=== PATIENT | female | born 1945 | race Caucasian/White ===

== ENCOUNTER 2017-11-07 14:06 | Inpatient (IN) | payer MEDICARE, OTHER ==
[~2017-11-07] VITALS: Ht 165.1 cm; Wt 65.7 kg
[2017-11-07 14:12] VITALS: BP 137/87
[2017-11-07] MEDS ORDERED: PAIN MEDICATION (14:22)
[2017-11-07] MEDS ORDERED: LISINOPRIL5 MG PO (14:22)
[2017-11-07 14:47] LABS: HEMATOCRIT 38.8 % (37.0-47.0); HEMOGLOBIN 13.2 gm/dL (12.0-15.0); MCH 31.7 pg (26.0-34.0); MCHC 33.9 g/dL (28.0-37.0); MCV 93.6 fL (80.0-100.0); MPV 8.4 fl. (7.2-11.1); NUCLEATED RBCS 0 /100WBC; PLATELET COUNT* 341 thou/uL (150-400); RBC 4.15 mil/uL (4.20-5.00); RDW-CV 14.2 % (10.5-14.5); WBC 7.7 thou/uL (4.0-11.0)
[2017-11-07 14:56] LABS: APTT 26.4 Seconds (25.0-31.3); CALCIUM 8.1 mg/dL (8.5-10.1); CREATININE 0.9 mg/dL (0.6-1.3); PROTIME 9.9 Seconds (9.20-11.50)
[2017-11-07 15:07] LABS: ALBUMIN 3.6 g/dL (3.4-5.0); TOTAL BILIRUBIN 1.4 mg/dL (<0.1-1.0); TOTAL PROTEIN 7.2 g/dL (6.4-8.2); TROPONIN-I LEVEL 0.26 ng/mL (<0.06)
[2017-11-07 15:36] LABS: ABSOLUTE LYMPHOCYTES 0.8 thou/uL (0.8-5.3); ABSOLUTE MONOCYTES 0.2 thou/uL (0.0-1.2); ABSOLUTE NEUTROPHILS 6.6 thou/uL (1.6-8.1); PLATELET ESTIMATE ADEQUATE
[2017-11-07 15:46] LABS: HCO3 16.2 mmol/L (22.0-26.0); PCO2 22.1 mmHg (35.0-45.0); PO2 95.2 mmHg (75.0-100.0); pH 7.483 (7.340-7.450)
[2017-11-07 18:14] VITALS: BP 122/86
[2017-11-07 18:45] VITALS: BP 127/81
--- NOTE | 2017-11-07 19:40 | NUR ---
PATIENT PRESENTED TO 231 PER CART FROM ER WITH A HX OF RECENT SOA. PATIENT IS ALERT AND ORIENTED X 4. SHE DENIES PAIN ON ARRIVAL. PATIENT C/O DIZZINESS AND SOA. PATIENT PLACED ON TELE MONITOR AND ORIENTED TO ROOM. INSTRUCTED ON FALL PRECAUTIONS, CALL LIGHT AND BED CONTROLS. TELE SHOWS ST. DR OBRIEN IN TO SEE PATIENT SHORTLY AFTER ARRIVAL. REPORT GIVEN TO CLERK GENERAL OFFICE. IV FLUIDS CONTINUED FROM ER.
[2017-11-07 20:00] VITALS: BP 139/83
[2017-11-08] VITALS (7 sets, daily range): BP systolic 118–174; BP diastolic 73–94
--- NOTE | 2017-11-08 02:43 | NUR ---
DENIES PAIN OR DISCOMFORT. SLEEPING ON AND OFF. LESION TO RT BREAST AND UNDER ARM FROM CA. POST CHEMO IN 2016, PAIN MEDS GIVEN AND EFFECTIVE REPORTED BY PATIENT. UP TO COMMODE WITH UNSTEADY TRANSFER. CONT. TO MONITOR. BED ALARM 3D DESIGNER LIGHT WITHIN REACH. CONT WITH POC.
[2017-11-08 05:11] LABS: HEMATOCRIT 33.8 % (37.0-47.0); HEMOGLOBIN 11.4 gm/dL (12.0-15.0); MCH 31.6 pg (26.0-34.0); MCHC 33.7 g/dL (28.0-37.0); MCV 93.7 fL (80.0-100.0); MPV 8.9 fl. (7.2-11.1); RBC 3.61 mil/uL (4.20-5.00); RDW-CV 14.8 % (10.5-14.5)
[2017-11-08 05:27] LABS: ALBUMIN 3.2 g/dL (3.4-5.0); CALCIUM 7.3 mg/dL (8.5-10.1); CREATININE 0.8 mg/dL (0.6-1.3); MAGNESIUM 2.2 mg/dL (1.8-2.4); POTASSIUM 4.4 mmol/L (3.5-5.1); TOTAL BILIRUBIN 0.8 mg/dL (<0.1-1.0); TOTAL PROTEIN 6.6 g/dL (6.4-8.2)
--- NOTE | 2017-11-08 12:08 | NUR ---
MET WITH PT TO DISCUSS HOME SITUATION/DC PLANNING. PT LIVES WITH SPOUSE. HE WAS AT BEDSIDE. PT STATES SHE STATED CHEMO LAST MONDAY AND IS 'NOT DOING WELL WITH ALL THIS MEDICINE.' SHE USES [facility]. SHE HAS BEEN ABLE TO DRESS HERSELF AND DO SOME COOKING, BUT HAS TROUBLE STANDING FOR VERY LONG. SHE HASN'T BEEN STANDING IN SHOWER EITHER. DID SUGGEST THEY GET A SHOWER BENCH, SPOUSE STATES HIS SON 'SELLS THOSE.' SPOUSE ASSISTS PT WITH ADLS AND HOUSEHOLD DUTIES. PT HASN'T HAS HAD HH BUT IS INTERESTED. DISCUSSED SOME POSSIBLE NEEDS AND WILL FOLLOW.
--- NOTE | 2017-11-08 14:04 | 2DMMODE ---
[place] [address] 2 D/M-MODE ECHOCARDIOGRAM Name: CROW BESS Room: [address] IN [facility]#: [id number] Admission: 11/07/17 Attend Phys: Theresa Torres, Discharge: Date of : 45 Date of Service: 11/08/17 1403 Report #: [id number] THIS REPORT FOR: //name// APPROVED REPORT Study performed: 11/08/2017 11:25:00 EXAM: Comprehensive 2D, Doppler, and color-flow Echocardiogram Patient Location: In-Patient Room #: 230 Status: routine BSA: 1.68 HR: 98 bpm BP: 118/52 mmHg Rhythm: NSR Other Information Technically limited study due to patient unable to tolerate procedure, not all views and measurements obtained.. Indications Elevated Troponin 2D Dimensions LVEF(%): 51.82 (>50%) IVSd: 8.88 (7-11mm) LVOT Diam: 20.15 (18-24mm) LVDd: 41.13 mm PWd: 8.53 (7-11mm) Ascending Ao: 29.65 (22-36mm) LVDs: 30.36 (25-40mm) Aortic Root: 31.11 mm Rutledge's LVEF: 51.82 % Aortic Valve AoV Peak Ajay.: 1.01 m/s AO Peak Gr.: 4.12 mmHg LVOT Max P.88 mmHg AO Mean Gr.: 2.64 mmHg LVOT Mean P.47 mmHg LVOT Max V: 0.85 m/s AO V2 VTI: 17.59 cm LVOT Mean V: 0.57 m/s DAMION (VTI): 2.79 cm2 LVOT V1 VTI: 15.42 cm Pulmonary Valve PV Peak Ajay.: 0.76 m/s PV Peak Gr.: 2.33 [place] [address] 2 D/M-MODE ECHOCARDIOGRAM Name: CROW BESS Room: [address] IN [facility]#: [id number] Admission: 11/07/17 Attend Phys: Theresa Torres, Discharge: Date of : 45 Date of Service: 11/08/17 1403 Report #: [id number] The left ventricle is normal size. There is normal LV segmental wall motion. There is normal left ventricular wall thickness. Left ventricular systolic function is normal. The left ventricular ejection fraction is within the normal range. LVEF is 55-60%. Grade I - abnormal relaxation pattern. Right Ventricle The right ventricle is normal size. The right ventricular systolic function is normal. Atria The left atrium size is normal. The right atrium size is normal. Aortic Valve Mild aortic valve sclerosis. No aortic regurgitation is present. There is no aortic valvular stenosis. Mitral Valve The mitral valve is normal in structure. There is no mitral valve regurgitation noted. No evidence of mitral valve stenosis. Tricuspid Valve The tricuspid valve is normal in structure. Unable to assess PA pressure. Trace tricuspid regurgitation. Pulmonic Valve The pulmonary valve is normal in structure. There is no pulmonic valvular regurgitation. Great Vessels The aortic root is normal in size. IVC is normal in size and collapses with >50% inspiration Pericardium There is no pericardial effusion. <Conclusion> The left ventricle is normal size. There is normal left ventricular wall thickness. Left ventricular systolic function is normal. The left ventricular ejection fraction is within the normal range. LVEF is 55-60%. Grade I - abnormal relaxation pattern. The right ventricle [place] [address] 2 D/M-MODE ECHOCARDIOGRAM Name: CROW BESS Ashley Room: [address]#: [id number] Admission: 11/07/17 Attend Phys: Theresa Torres, Discharge: Date of : 45 Date of Service: 11/08/17 1403 Report #: [id number] The left atrium size is normal. Mild aortic valve sclerosis. No aortic regurgitation is present. There is no aortic valvular stenosis. The mitral valve is normal in structure. The tricuspid valve is normal in structure. IVC is normal in size and collapses with >50% inspiration There is no pericardial effusion. There is normal LV segmental wall motion. <ELECTRONICALLY SIGNED> By: Bradford Benitez MD, [facility] 11/08/17 1403 1403 140 Bradford Benitez MD, FACC /INF
--- NOTE | 2017-11-08 15:27 | EKG ---
[place] [address] ELECTROCARDIOGRAM REPORT Name: CROW BESS Room: [address] IN [facility].#: [id number] Admission: 11/07/17 Attend Phys: Theresa Torres MD Discharge: Date of : 45 Report #: [id number] THIS REPORT FOR: //name// [facility] ED Test Date: 2017-11-07 Test Time: 14:40:32 Pat Name: CROW BESS Department: Room: [facility] Gender: F Sterile Supervisor: Scarlett GUILLERMO : 1945 Requested By: Doug Huitron Order Number: [id number] MD: Bradford Benitez Measurements Intervals [place] Rate: 122 P: 50 NV: 114 QRS: 46 QRSD: 97 T: -69 QT: 376 QTc: 536 Interpretive Statements Sinus tachycardia Abnrm T, consider ischemia, anterolateral lds Prolonged QT interval No previous ECG available for comparison Electronically Signed On 11-08-2017 15:27:03 LEAD PRINCIPAL TECHNICAL ARCHITECT by Bradford Benitez [email or web address] <ELECTRONICALLY SIGNED> By: Bradford Benitez MD, [facility] 11/08/17 1527 1440 1440 Bradford Benitez MD, FAC /EPI
--- NOTE | 2017-11-08 16:47 | NUR ---
WOUND CARE NOTE: CONSULT RECEIVED FOR WOUNDS ON BREAST. PATIENT PRESENTS WITH 2 FULL THICKNESS ULCERATIONS TO THE RIGHT LATERAL CHEST WALL. PATIENT STATES THESE ARE FROM ULTRASOUNDS AND AN ICE PACK THAT FELL UNDER HER ARM. HOWEVER, BELIEVE THESE TO BE FUNGATING TUMORS. RIGHT LATERAL CHEST, SUPERIOR: WOUND MEASURES 1.5X3.5X0.7. RED, MOIST, FRIABLE TISSUE. MACERATION PRESENT TO LORELEI-WOUND. LORELEI-WOUND IS FIRM AND DOES NOT MOVE. PATIENT'S RN CLEANSED AND DRESSED WOUND. RIGHT LATERAL CHEST, INFERIOR: WOUND MEASURES 3.5X1.8X0.4. YELLOW, MOIST ESCHAR. LORELEI-WOUND IS FIRM AND DOES NOT MOVE. PATIENT'S RN CLEANSED AND DRESSED WOUND. BOTH WOUNDS HAVE FAINT SWEET ODOR TO THEM. EDUCATED PATIENT ON FINDINGS AND DRESSINGS BEING USED, COMMUNICATED UNDERSTANDING. RECOMMEND FOLLOW UP IN WOUND CENTER ENCOURAGE GOOD NUTRITION AND HYDRATION.
--- NOTE | 2017-11-08 18:00 | NUR ---
RECEIVED REPORT FROM NOC RN. PT IS SITTING FORWARD IN BED, SOA, AT BEGINNING OF SHIFT. PT HOLDING DISPOSABLE EMESIS BAG IN ONE HAND. PT STATES SHE HAS NOTED CLEAR FROTHY LIQUID BUT NO FOOD. PRN MED GIVEN FOR NAUSEA PER JAN. N/V CONTINUED, ESPECIALLY AFTER PT ATTEMPTED EATING FOOD. PT STATES SHE KNOWS SHE NEEDS TO EAT BUT CANNOT KEEP FOOD DOWN. DR. OBRIEN CONTACTED FOR ADJUNCT MED TO CONTROL N/V. NEW ORDERS FOR SCOPOLAMINE AND PROMETHEZINE ACCEPTED AND PROVIDED TO PT. VS OBTAINED, WNL. ASSESSMENT COMPLETE. CALL LIGHT IN REACH. FREQUENT CHECKS. PT NOW RESTING COMFORTABLY.
[2017-11-09] VITALS (8 sets, daily range): BP systolic 116–166; BP diastolic 81–97
--- NOTE | 2017-11-09 01:41 | NUR ---
ALERT AND ORIENTED X 4, UP IN RECLINER SLEEPING. UPPER GASTRIC PAIN, GAVE ZOFRAN, ATIVAN, AND PAIN MED. APPEARS COMFORTABLE NOW. CONT. SR-ST ON MONITOR. DENIES ANY FURTHER COMPLAINTS. CONT. TO MONITOR.
[2017-11-09 04:06] LABS: HEMATOCRIT 33.2 % (37.0-47.0); HEMOGLOBIN 11.4 gm/dL (12.0-15.0); MCH 31.8 pg (26.0-34.0); MCHC 34.3 g/dL (28.0-37.0); MCV 92.9 fL (80.0-100.0); MPV 9.1 fl. (7.2-11.1); RBC 3.57 mil/uL (4.20-5.00); RDW-CV 14.7 % (10.5-14.5); WBC 7.5 thou/uL (4.0-11.0)
[2017-11-09 04:17] LABS: ALBUMIN 3.6 g/dL (3.4-5.0); CALCIUM 7.6 mg/dL (8.5-10.1); CREATININE 0.9 mg/dL (0.6-1.3); POTASSIUM 4.2 mmol/L (3.5-5.1); TOTAL BILIRUBIN 0.9 mg/dL (<0.1-1.0); TOTAL PROTEIN 6.9 g/dL (6.4-8.2)
--- NOTE | 2017-11-09 06:39 | NUR ---
PLACED PATIENT IN RECLINING CHAIR IN ROOM. CHECKED ON PATIENT AND SHE WAS SLEEPING. STAFF RAN IN ROOM ABOUT 0519, FOLLOW BEHIND AND FOUND PT IN SITTING POSITION ON FLOOR. NOTED A SCRATCH TO FORHEAD AND RAISED HEMOTOMA. PLACED CALL WITH DOCTOR. HE IS AWARE. AWAITING CALL BACK FOR POSSIBLE CT OF HEAD. NEURO'S IN WNL BASELINE FOR THIS PATIENT. ROM ALL EXTREMITY. CONT. TO MONITOR.
--- NOTE | 2017-11-09 07:15 | NUR ---
CHANGE OF SHIFT, BEDSIDE REPORT GIVEN ASSUMED PATIENT CARE PATIENT SEEN AT BEDSIDE, IN BED AND RESTING, BED ALARM ON
--- NOTE | 2017-11-09 14:29 | NUR ---
CONTINUE TO FOLLOW, MET WITH PT, SPOUSE, SON AND DIL TO DISCUSS DC PLAN. PT IS INTERESTED IN SNF. DISCUSSED OPTIONS AND THEY WOULD LIKE FOR HER TO GO [facility] [place] THEY ALL LIVE CLOSE TO THERE. CHEMO IS ON HOLD AT THIS TIME PER 'S NOTES. CALLED AND FAXED REFERRAL TO [facility]. DISCUSSED XARELTO WITH PT ALSO. CALLED TO [facility] TO CHECK COST. PT AWARE SHE WILL BE ON IT FOR SOME TIME. WILL FOLLOW
--- NOTE | 2017-11-09 18:33 | NUR ---
PATIENT IN BED ASLEEP ST TODAY, 100S-110S O2 3.5 L NC POOR APPETITE CONTINUES TO HAVE PAIN WITH SEALLOWING LAST BM UNKNOWN UO FAIR URINE APPEARS DARK AND CONCENTRATED UP WITH 1 ASSIST GENERALIZED EDEMA 2-3+ UPPER R CHEST 2 WOUNDS AQUACEL NANCY D/I R IJ IVF LR AT 100CC/HR CT HEAD COMPLETE BED ALARM OIL TREATER LIGHT INSTRUCTION GIVEN AND FOLLOWED AND IN REACH
--- NOTE | 2017-11-09 20:00 | NUR ---
RECEIVED REPORT AND ASSUMED CARE OF PT, ASSESSMENT COMPLETED. PT RESTLESS, SITTING UP IN BED AND THEN LAYING DOWN. DENIES NAUSEA BUT KEEPING BASIN CLOSE BY FOR COMFORT. DRSG TO RT CHEST INTACT. PT HAS GENERALIZED EDEMA WITH 2+ EDEMA INTO RT ARM AND RT LEG. TELEMETRY ON SHOWING SR. WILL CONT TO MONITOR AND ASSIST NEEDED.
--- NOTE | 2017-11-10 00:10 | NUR ---
PT ABLE TO TAKE HS MEDS WITHOUT DIFFICULTY IN SWALLOWING. IV PAIN MED GIVEN AND PT ABLE TO REST WITH EYES CLOSED AFTER THIS.
[2017-11-10 00:29] VITALS: BP 119/72
[2017-11-10 04:08] VITALS: BP 126/80
--- NOTE | 2017-11-10 04:46 | NUR ---
ASSUMED CARE AT 0100, REPORT RECEIVED FROM AME MAYEN. AGREE WITH PREVIOUS ASSESSMENT. PATIENT RESTING IN BED. SATS ON 3L/NC: 97%. UP WITH ASSIST TO BSC. DENIES PAIN OR NEEDS. RIGHT ARM SWELLING NOTED. DRESSINGS D/I TO RIGHT CHEST. BRUISING NOTED TO RIGHT FOREHEAD. BED ALARM ON. WILL MONITOR.
--- NOTE | 2017-11-10 07:20 | NUR ---
CHANGE OF SHIFT, BEDSIDE REPORT GIVEN ASSUMED PATIENT CARE PATIENT SEEN AT BEDSIDE, ASLEEP IN BED BED ALARM ON
[2017-11-10 08:00] VITALS: BP 139/91
[2017-11-10 12:00] VITALS: BP 113/77
--- NOTE | 2017-11-10 12:32 | NUR ---
CUBA SPOKE TO SID AT [facility] AND SHE INFORMS THAT [facility] IS ABLE TO ACCEPT THE PATIENT OVER THE WEEKEND, CM WILL NEED TO CONTACT THE CHARGE NURSE TO INFORM OF THE PATIENTS DISCHARGE, D/C ORDERS WILL NEED TO BE FAXED, AND CM WILL NEED TO SETUP TRANSPORTATION. CM WILL REMAIN AVAILABLE TO ASSIST AND FOLLOW NEEDED. [facility] PHONE: [phone] [facility] FAX: [phone]
[2017-11-10 15:43] VITALS: BP 125/64
--- NOTE | 2017-11-10 20:16 | NUR ---
patient laying in bed asleep remained a and o x [address] 100s-110s lungs coarse/dim o2 at 3l nc o2 sat mid 90s productive cough with frothy, clear sputum, small amts appetie good but continues to have difficulty swallowing poor intake last bm reported t-5 urine output fair urine dark yellow up with 1 assist to bsc and chair ref scds r forehead with lump and bruise moose lue edema 2+ 2 wounds at r chest area fred lloyd d/i wound cons worked with pt/ot today, tolerated well c/o epigastric pain treated with morphine 2mg ivp, given twice today patient expressed good relief of pain and rested well today l ue limb alert in place iv site l ij ivf lr at 150cc/hr bed alarm horizontal boring mill operator light instruction given and followed and in reach
[2017-11-10 20:30] VITALS: BP 120/72
[2017-11-11] VITALS: BP 113/70
[2017-11-11 04:00] VITALS: BP 124/80
[2017-11-11 08:00] VITALS: BP 128/72
--- NOTE | 2017-11-11 08:32 | NUR ---
ASSUMED CARE AT 2030, ASSESSMENT CHARTED. PATIENT ALERT/ORIENTED X4, RESTING IN BED. UP WITH ASSIST TO BSC. DENIES PAIN OR NEEDS. MEDS PER MAR. REPOSITIONS SELF FREQUENTLY. REFUSING SCD'S. VERY POOR APPETITE, REFUSING ALL PO MEDS. WILL OCCASSIONALLY EAT ICE CHIPS OR HARD CANDY. BED ALARM ON. CALL LIGHT WITHIN REACH, ENCOURAGED TO CALL FOR NEEDS.
--- NOTE | 2017-11-11 09:04 | NUR ---
PATIENT RESTING IN BED. REPORT GIVEN TO ONCOMING NURSE.
[2017-11-11 12:00] VITALS: BP 87/74
[2017-11-11 16:32] VITALS: BP 136/83
--- NOTE | 2017-11-11 18:47 | NUR ---
ASSUMED CARE OF PT AT 0715. PT CONTINUES TO BE A&O X4 AND FORGETFUL AT TIMES. SHE HAS HAD C/O CHEST/UPPER ABD PAIN TODAY THAT HAS BEEN CONTROLLED WITH PRN IV PAIN MEDICATIONS. PT REFUSES TO TAKE ANYTHING BY MOUTH, INCLUDING FOOD AND DRINK. PT REPORTED THAT SHE ATTEMPTED TO EAT SOME JELLO AT DINNER TIME AND THAT IT CAUSED SEVERE PAIN. PT HAS BEEN UP TO THE BEDSIDE COMMODE WITH 1 ASSIST TODAY. SHE CONTINUES TO HAVE 3+ EDEMA TO HER RUE BUT DENIES ANY PAIN OR DISCOMFORT IN THE ARM AND PULSE, CAPILARY REFILL AND ROM ARE NORMAL. PT RESTING IN BED WITH FAMILY AT BEDSIDE. NURSING WILL CONTINUE TO MONITOR.
[2017-11-11 20:10] VITALS: BP 127/76
[2017-11-12] VITALS: BP 127/77
[2017-11-12 04:48] VITALS: BP 130/85
--- NOTE | 2017-11-12 05:56 | NUR ---
ASSUMED CARE AROUND 1930. PT A/OX4 AND PLEASANT, FORGETFUL AT TIMES. TELE MONITOR TRACING ST WITH HR 110'S. ON 2L NC, SOA AT TIMES RYAN. WITH ACTIVITY. UP SBA TO BSC. NO BM THIS SHIFT, REPORTED ABDOMINAL PAIN AND TREATED WITH PRN PAIN MEDS. IVF INFUSING VIA IJ ORDERED. VSS, AFEBRILE. PT REPORTED FEELING ANXIOUS WHEN WAKING UP THIS AM AND WANTED TO PUT FEET ON GROUND-PRN ANXIETY MEDS GIVEN. PT NOT TOLERATING MUCH PO, EVEN WATER EXACERBATED ABD PAIN PER PATIENT. REFUSING LIQ MEDS AND ANY FOOD. CHEMO PRECAUTIONS. FALL PRECAUTIONS IN PLACE, PT REQUESTED 4 SIDERAILS UP. SEE CHARTING. CALL LIGHT IN REACH, BEDALARM ON, WILL CONTINUE WITH PLAN OF CARE.
[2017-11-12 08:00] VITALS: BP 134/86
[2017-11-12 13:23] VITALS: BP 121/80
[2017-11-12 16:30] VITALS: BP 131/86
--- NOTE | 2017-11-12 19:01 | NUR ---
ASSUMED CARE OF PT AT 0730. BEDSIDE RERPORT RECIEVED FROM NOC SHIFT NURSE. PT CONTINUES TO BE A&O WITH C/O UPPER ABD PAIN THAT HAS BEEN CONTROLLED WITH PRN PAIN MEDS. PT CONTINUES TO REFUSE TO TAKE ANYTHING BY MOUTH. PT UP STAND BY TO THE BEDSIDE COMMODE TODAY. PT CURRENTLY RESTING IN BE WATCHING TV. NURSING WILL CONTINUE TO MONITOR.
[2017-11-12 20:00] VITALS: BP 129/84
[2017-11-13] VITALS (9 sets, daily range): BP systolic 84–133; BP diastolic 62–86
--- NOTE | 2017-11-13 02:08 | NUR ---
APPROX 0045 PT HEART RATE INCREASED TO 160-180'S ANSWERING SERVICE CALL PLACED TO CARDIO, REC CALL FROM DR KAUR, CARDIZEM STARTED, STOPPED CARDIZEM DUE TO LOW BP, CONTACTED DR KAUR WHO D/C'ED CARDIZEM AND ORDERED AMIODARONE, ORDERS WRITTED AND FAXED TO PHARMACY, CONATCTED HOUSE SUP WHO WILL TEND TO OBTAINING MEDICATION FOR PT, CARDIO RE-CONSULTED, ENTERED ORDERE AT THIS TIME.
--- NOTE | 2017-11-13 06:55 | NUR ---
PT REMAIN A/O X3-4, CURRENTLY ON 3L NC, NOW SHOWING ST ON THE MONITOR WITH AMIODARONE RUNNING AT 33CC/HR, PT WENT INTO AFIB OVER NIGHT WITH HR 160-180'S, STARTED WITH CARDIZEM BUT HAD TO STOP DUE TO PT'S BP FELL INTO S-80'S WITH THE AMIODARONE THEN ORDERED, NEW CONSULT PLACED FOR CARDIO PREVIOUS STATED NO OTHER CARDIAC INTERVENTION NEEDED WHEN THEY SAW PT DUE TO ELEVATED TROP WERE RELATED TO HER PE'S, MEDS/ASSESSMENT PER CHARTING, HOURLY ROUNDING COMPLETED, FALL PRECUATIONS REMAIN IN PLACE WITH CALL LIGHT IN REACH, WILL CONT TO MONITOR.
--- NOTE | 2017-11-13 07:20 | NUR ---
CHANGE OF SHIFT, BEDSIDE REPORT GIVEN ASSUMED PATIENT CARE PATIENT SEEN AT BEDSIDE, ASLEEP.
--- NOTE | 2017-11-13 07:30 | NUR ---
CHANGE OF SHIFT, BEDSIDE REPORT GIVEN ASSUMMED PATIENT CARE PATIENT IN BED AND RESTING, NO REQUESTS
--- NOTE | 2017-11-13 11:22 | EKG ---
[place] [address] ELECTROCARDIOGRAM REPORT Name: CROW BESS Room: [address] ADM IN [facility].#: [id number] Admission: 11/07/17 Attend Phys: Theresa Torres MD Discharge: Date of : 45 Report #: [id number] THIS REPORT FOR: //name// [facility] Test Date: 2017-11-13 Test Time: 00:29:28 Pat Name: CROW BESS Department: Room: [address] Gender: F Hydraulic Operator: [facility] : 1945 Requested By: Gerard Elias Order Number: [id number] Reading MD: Clayton Herrera Measurements Intervals [place] Rate: 176 P: SC: QRS: 56 QRSD: 83 T: 269 QT: 291 QTc: 498 Interpretive Statements Atrial fibrillation with rapid V-rate Probable LVH with secondary repol abnrm Compared to ECG 11/07/2017 14:40:32 Sinus tachycardia no longer present Electronically Signed On 11-13-2017 11:22:25 HEATING SYSTEMS INSTALLER by Clayton Herrera [email or web address] <ELECTRONICALLY SIGNED> By: Clayton Herrera MD, [facility] 11/13/17 1122 0029 0029 Clayton Herrera MD, [facility] /EPI
--- NOTE | 2017-11-13 11:23 | EKG ---
[place] [address] ELECTROCARDIOGRAM REPORT Name: CROW BESS Room: [address] ADM IN [facility].#: [id number] Admission: 11/07/17 Attend Phys: Theresa Torres MD Discharge: Date of : 45 Report #: [id number] THIS REPORT FOR: //name// [facility] Test Date: 2017-11-13 Test Time: 03:12:30 Pat Name: CROW BESS Department: Room: [address] Gender: F Filtering Machine Tender: TIGRE : 1945 Requested By: Gerard Elias Order Number: [id number] Reading MD: Clayton Herrera Measurements Intervals [place] Rate: 117 P: 56 OK: 117 QRS: 23 QRSD: 97 T: 225 QT: 376 QTc: 525 Interpretive Statements Sinus tachycardia Repol abnrm suggests ischemia, anterolateral Prolonged QT interval Compared to ECG 11/07/2017 14:40:32 a fib no longer seen Possible ischemia still present Electronically Signed On 11-13-2017 11:23:37 MARBLE COPER by Clayton Herrera [email or web address] <ELECTRONICALLY SIGNED> By: Clayton Herrera MD, [facility] 11/13/17 1123 0312 0312 Clayton Herrera MD, [facility] /EPI
--- NOTE | 2017-11-13 19:29 | NUR ---
patient remains a and o x 4 st 110s lungs coarse r lobe and dim in bases manager wireless cough at times o2 at 3l nc o2 sat high 90s poor appetite due to difficult, painful swallowing small bm today good uo d. yellow approx 300cc seen up with 1 assist to chair/bsc no scds r forehead contusion/briuse , spreading r eye r ue edema 3+ rue limb alert bracelet call light in reach and instruction given and followed bed alarm on lovenox dcd today in preparation for egd 11/15/17 npo after mn and patient instructed c/o epigastric pain with swallowing treated with morphine 2mg ivp,with good relief
[2017-11-14] VITALS: BP 129/77
[2017-11-14 03:00] VITALS: BP 146/86
--- NOTE | 2017-11-14 04:34 | NUR ---
PT A/OX4, ST, 2L NC, UP WITH 1 TO BSC/BED ARMSTRONG, NPO FOR EGD TODAY, PT CONT TO REFUSE TO EAT DUE TO PAIN, PT DID TAKE PO AMIODARONE AT HS AFTER GIVING MORPHINE TO PRE-TREAT THE PAIN, PT STILL EXPRESSED PAIN WITH SWALLOWING THE DISOLVED PILLS IN SMALL AMT OF WATER, PAIN RESOLVED QUICKLY, MEDS/ASSESSMENT PER CHARTING, HOULRY ROUNDING IN PLACE, FALL PRECAUTIONS IN PLACE, PT USES CALL LIGHT NEEDED, ABLE TO REPORT NEEDS/WANTS, LABS DRAWN FROM IJ PER ORDERS, VSS, WILL CONT TO MONITOR.
--- NOTE | 2017-11-14 07:20 | NUR ---
CHANGE OF SHIFT, BEDSIDE REPORT GIVEN ASSUMED PATIENT CARE SEEN AT BEDSIDE, IN BED ASLEEP
[2017-11-14 08:00] VITALS: BP 125/71
[2017-11-14 11:38] VITALS: BP 133/70
[2017-11-14 14:36] VITALS: BP 133/70
[2017-11-14 15:16] VITALS: BP 140/81
--- NOTE | 2017-11-14 15:37 | NUR ---
CM ATTEMPTED TO VISIT WITH THE PATIENT TO DISCUSS ANY QUESTIONS OR CONCERNS THAT SHE MAY HAVE. PATIENT OUT OF THE ROOM AT THIS TIME HAVING AN EGD. CM WILL FOLLOW-UP WITH THE PATIENT AT ANOTHER TIME. CM SPOKE TO TOM AT [facility] TO DISCUSS THE REFERRAL AND BED AVAILABLITY AT [facility]. TOM AT [facility] INFORMS THAT THEY STILL HAVE A BED AVAILABLE FOR THE PATIENT AND ARE ABLE TO ACCEPT AT DISCHARGE. CM WILL NEED TO FOLLOW-UP WITH THE PATIENT TO CONFIRM AGREEMENT WITH [facility]. CM WILL REMAIN AVAILABLE TO ASSIST AND FOLLOW NEEDED.
--- NOTE | 2017-11-14 16:29 | CON ---
[address] [address] CONSULTATION Name: CROW BESS Room: [address] IN ..#: [id number] Admission: 11/07/17 Attend Phys: Theresa Torres MD Discharge: Date of : 45 Report #: [id number] THIS REPORT FOR: //name// CC: Theresa Paez [facility] DICTATED BY: Lia Sierra [facility] DATE OF SERVICE: 11/10/2017 Please note at the time of this dictation, the patient was seen and physically examined by myself. REASON FOR CONSULTATION: Dysphagia. HISTORY OF PRESENT ILLNESS: This is a pleasant 72-year-old female who recently came into the hospital on 11/07/2017 with increasing shortness of air, decreased appetite and a little nausea. She states that was worsening. She did have a CTA done that showed consistent with pulmonary emboli and was started on Lovenox. She took her first dose of Xarelto yesterday and today. She also has been complaining of dysphagia, which has progressively gotten worse to the point that she can hardly get pills down. Every once in a while she can, but likely most of the time, she cannot get water down or it comes back up and has not been able to eat very well over the last several days. She states she has been able to get a little bit of Jell-O down, but otherwise nothing else. She is currently undergoing chemotherapy for her breast cancer and received her second round in mid October. The patient has never had any upper or lower endoscopy studies done. ALLERGIES: FISH CONTAINING PRODUCTS, CEPHALEXIN, AND TAPE. MEDICATIONS: From home were lisinopril and pain medicine. PAST MEDICAL HISTORY: Breast cancer and now recently, hypertension as well as recently now with a PE. PAST SURGICAL HISTORY: Negative. FAMILY HISTORY: Negative for any GI or female cancers. SOCIAL HISTORY: She continues to smoke cigarettes about 1-2 packs per day. Denies any alcohol or illegal drug use. REVIEW OF SYSTEMS: Twelve-point review [place] [address] CONSULTATION Name: CROW BESS Ashley Room: [address] IN [facility]#: [id number] Admission: 11/07/17 Attend Phys: Theresa Torrse MD Discharge: Date of : 45 Report #: [id number] except what is mentioned in the HPI. PHYSICAL EXAMINATION: VITAL SIGNS: Temperature 36.7, pulse 119, respirations 19, blood pressure 139/91. HEART: Regular rate and rhythm, tachycardic. CHEST: Lungs slightly diminished but clear. Oxygen on at 2 liters. ABDOMEN: Soft, positive bowel sounds in all 4 quadrants with no masses or tenderness noted. LABORATORY DATA: Hemoglobin is 11.4, hematocrit 33.2, white count is 7.5, platelets 329. Sodium 142, potassium 4.2, chloride 108, CO2 24, BUN is 22, creatinine 0.9, GFR 62. Glucose is 138. PT is 9.9, INR is 1. Total bilirubin 0.9, alkaline phosphatase 99, ALT is 100 and AST is 95. Ultrasound of the liver showed fatty liver with no ductal dilatation noted. The patient did have a barium swallow done this morning. Results are not in the chart; however, the patient was told that she had a narrowing in her esophagus. IMPRESSION: 1. Dysphagia. 2. Vomiting. 3. Breast cancer. 4. Pulmonary embolism. 5. Elevated liver function tests. 6. Fatty liver. PLAN: 1. We will need to check with Cardiology regarding holding her Xarelto and starting Lovenox so that we can do an endoscopy study on her. 2. Carafate suspension. 3. Diflucan is already on board. 4. We will do some Protonix IV b.i.d. 5. Labs: Acute hepatitis panel. 6. Further recommendations to be made that she will need an EGD once we are able to get her switched over to Lovenox and her Xarelto has been held over a couple of days. Thank you for allowing us to participate in this patient's care. Please do not hesitate to call with any questions in regard to this consult. ADDENDUM: This is a 72-year-old female with a history of breast cancer who is currently on chemotherapy and developed clot in her right arm and also a PE for which she is currently on Xarelto. The patient complains of dysphagia and inability to eat or drink as this causes her to have odynophagia. She [place] [address] CONSULTATION Name: CROW BESS Room: [address] IN [facility]#: [id number] Admission: 11/07/17 Attend Phys: Theresa Torres MD Discharge: Date of : 45 Report #: [id number] She denies any abdominal pain and her belly is soft and nontender. She claims that majority of her pain and discomfort is in her chest and is induced by swallowing or drinking fluids. Given the patient's recent PE and thrombosis of right arm, we will not stop the Xarelto and if we need to take a look, we will just put a scope down in her throat and evaluate her esophagus. Meanwhile, we will continue Protonix and Diflucan. <ELECTRONICALLY SIGNED> By: Cole Mcneal MD 11/14/17 1629 1251 1735Cole Mcneal MD /nt
--- NOTE | 2017-11-14 16:37 | EKG ---
[place] [address] ELECTROCARDIOGRAM REPORT Name: CROW BESS Room: [address] ADM IN .R.#: [id number] Admission: 11/07/17 Attend Phys: Theresa Torres MD Discharge: Date of : 45 Report #: [id number] THIS REPORT FOR: //name// [facility] Test Date: 2017-11-14 Test Time: 08:50:28 Pat Name: CROW BESS Department: Room: [address] Gender: F Show Girl: 15 : 1945 Requested By: Clayton Herrera Order Number: [id number] Wilfredo MD: Siva Pereyra Measurements Intervals [place] Rate: 102 P: 67 UT: 122 QRS: 9 QRSD: 100 T: 256 QT: 418 QTc: 545 Interpretive Statements Sinus tachycardia LVH w/ repol abnormalities, possible ischemia Prolonged QT interval Compared to ECG 11/13/2017 03:12:30 Early repolarization no longer present Possible ischemia still present Electronically Signed On 11-14-2017 16:37:41 WASTE EXAMINER by Siva Pereyra [email or web address] <ELECTRONICALLY SIGNED> By: Siva Pereyra MD, [facility] 11/14/17 1637 0850 0850 Siva Pereyra MD, [facility] /EPI
--- NOTE | 2017-11-14 19:49 | NUR ---
PATIENT RESTING IN BED, HOB UP 30 A AND O X 4 ST 110 LUNGS COARSE/DIM O2 AT 4L NC O2 SATS MID 90S NPO TODAY FOR EGD, REMAINS NPO FOR EGD TOMORROW LAST BM T-1 FAIR UO URINE DARK AND CONCENTRATED APPROX 400CC UP WITH 1 ASSIST TO BSC NO SCDS RUE LIMB ALERT R UE 3+ EDEMA ORDERS FOR EDEMA SLEEVE, UNABLE TO GET FROM WOUND NURSE TODAY, INSTRUCTED TO WRAP WITH KERLEX AND ARNULFO PROXIMAL TO DISTAL R FOREHEAD CONTUSION/ BRUISE IV L IJ IVF NS AT 80CC/HR STARTED C/O EPIGASTRIC PAIN TREATED AND RELIEVED WITH 2MG MORPHINE IVP THIEN ALARM ON AND CALL LIGHT INSTRUCTION GIVEN AND FOLLOWED
[2017-11-15] VITALS (18 sets, daily range): BP systolic 90–138; BP diastolic 43–71
--- NOTE | 2017-11-15 05:36 | NUR ---
PT A/O X3-4, ST ON THE MONITOR, 4 L NC, DRESSING CHANGE X2 TO THE RIGHT UPPER CHEST COMPLETED, NOTED NEW CENTRAL LINE DRESSING TO THE LJ REPLACED BY DAYS ON PREVIOUS SHIFT, PT URINATED X1 OVER NIGHT APPROX 300 CC OF DARK FOUL SMELLING URINE, IV FLUIDS RUNNING PER ORDRES, NPO FOR REPEATED EGD TODAY, SPOKE TO DR REES APPROX [phone] REGARDING PT COUGHING UP SMALL THIN BROWN LIQUID, DR REES STATED IT IS NOT NEW AND HE SAW THAT ALREADY, Q2T COMPLETED, MEDS/ASSESSMENT PER CHARTING, HOULRY ROUNDING IN PLACE, FALL PRECAUTIONS IN PLACE AND CALL LIGHT REACH AT ALL TIMES, VSS, WILL CONT TO MONITOR.
--- NOTE | 2017-11-15 07:30 | NUR ---
CHANGE OF SHIFT, BEDSIDE REPORT GIVEN ASSUMED PATIENT CARE PATIENT SEEN AT BEDSIDE, PATIENT ASLEEP IN BED
[2017-11-15 08:55] LABS: HEMATOCRIT 35.7 % (37.0-47.0); HEMOGLOBIN 11.8 gm/dL (12.0-15.0); MCH 31.3 pg (26.0-34.0); MCV 94.7 fL (80.0-100.0); MPV 8.8 fl. (7.2-11.1); NUCLEATED RBCS 0 /100WBC; PLATELET COUNT* 331 thou/uL (150-400); RBC 3.77 mil/uL (4.20-5.00); RDW-CV 15.8 % (10.5-14.5); WBC 11.5 thou/uL (4.0-11.0)
[2017-11-15 09:05] LABS: CALCIUM 7.3 mg/dL (8.5-10.1); CREATININE 0.7 mg/dL (0.6-1.3); MAGNESIUM 2.7 mg/dL (1.8-2.4); POTASSIUM 3.1 mmol/L (3.5-5.1); TOTAL BILIRUBIN 2.7 mg/dL (<0.1-1.0); TOTAL PROTEIN 5.8 g/dL (6.4-8.2)
[2017-11-15 09:20] LABS: ABSOLUTE LYMPHOCYTES 0.3 thou/uL (0.8-5.3); ABSOLUTE MONOCYTES 0.8 thou/uL (0.0-1.2); ABSOLUTE NEUTROPHILS 10.4 thou/uL (1.6-8.1); PLATELET ESTIMATE ADEQUATE
[2017-11-15 11:18] LABS: INR 1.1; PROTIME 10.7 Seconds (9.20-11.50)
--- NOTE | 2017-11-15 17:12 | NUR ---
WOUND CARE NOTE: WAS CONSULTED TO SEE PATIENT FOR EDEMA TO RIGHT ARM. PATIENT PRESENTS WITH EDEMA TO RIGHT ARM. NO INFLAMMATION NOTED. LOTION WAS PLACED TO HAND ALL THE WAY UP TO THE UPPER ARM. PLACED KERLIX AND ARNULFO WRAP. EDUCATED PATIENT AND SPOUSE ON COMPRESSION THERAPY AND WHAT TO DO IF IT FEELS TOO TIGHT. COMMUNICATED UNDERSTANDING. RECOMMEND REMOVE AND REPLACE WRAP DAILY ELEVATE ARM ON PILLOWS
--- NOTE | 2017-11-15 19:58 | NUR ---
patient to icu post egd, notified by charge nurse report given to bell in icu patients belongings and medications sent to icu sarath michael at bedside post egd dr henson spoke with son
--- NOTE | 2017-11-15 20:45 | NUR ---
BACK TO ROOM FROM STAT CHEST CT SCAN.
[2017-11-16] VITALS (16 sets, daily range): BP systolic 11–117; BP diastolic 47–68
--- NOTE | 2017-11-16 04:27 | NUR ---
INIMAL PROGRESSION TOWARDS GOALS, PROPOFOL TITRATED UP TO 50MCG/KG/MIN FOR SEDATION, PT ATTEMPTING TO SIT UP IN BED AND PULLING AGAINST RESTRAINTS, ST WITH PAC'S AND PVC'S TRACING COATER HAND, D5 0.45 50CC/HR PER INFUSION PUMP, POTASSIUM 40MEQ VIA SECOND BAG OF TWO TOTAL BAGS INFUSING PER PUMP VIA CENTRAL LINE AT THIS TIME, FIO2 TITRATED DOWN TO 50% BY RT, BED REMAINS IN LOW AND LOCKED POSITON. HR ONE-TEENS, NON-SUBSTAINED INTERMITTENT CHIRAG TACHYCARDIA UP TO 150'S. DRESSING RIGHT LATERAL CHEST WALL AND RIGHT ARM C/D/I
[2017-11-16 04:44] LABS: HEMATOCRIT 32.5 % (37.0-47.0); HEMOGLOBIN 10.7 gm/dL (12.0-15.0); MCH 31.7 pg (26.0-34.0); MCHC 32.9 g/dL (28.0-37.0); MCV 96.2 fL (80.0-100.0); MPV 8.6 fl. (7.2-11.1); RBC 3.38 mil/uL (4.20-5.00); WBC 10.6 thou/uL (4.0-11.0)
[2017-11-16 05:13] LABS: ALBUMIN 2.5 g/dL (3.4-5.0); CALCIUM 6.9 mg/dL (8.5-10.1); CREATININE 0.8 mg/dL (0.6-1.3); POTASSIUM 3.7 mmol/L (3.5-5.1); TOTAL BILIRUBIN 2.1 mg/dL (<0.1-1.0); TOTAL PROTEIN 5.4 g/dL (6.4-8.2)
--- NOTE | 2017-11-16 08:23 | NUR ---
RECEIVED REPORT FROM NIGHT RN. ASSESSMENT CHARTED. LOW GRADE TEMP. PT WILL POSSIBLY BE TRANSFERRED OUT TODAY. STILL ON VENT AND SEADTED ON PROPOFOL. WILL CONTINUE TO MONITOR.
--- NOTE | 2017-11-16 09:32 | NUR ---
WORKING ON TRANSFER TO FACILITY WITH [facility]. REQUESTS [facility] SO HE CAN FOLLOW. CONTACTED [facility] TRANSFER TEAM [phone]. GAVE INFORMATION. FAXED TRANSFER PACKET TO HER INCLUDING FACE SHEET,H&P,LAST 2 DAYS OF PROGRESS NOTES AND NOTE FROM AND FROM 11/14 AND 11/15,LABS,RADIOLOGY REPORTS -[phone]. SHE WILL HAVE TEAM REVIEW. SHE IS AWARE PT.ON VENT IN ICU.
[2017-11-16 10:48] LABS: BE -2.1 mmol/L (-2 to +3); HCO3 22.5 mmol/L (22.0-26.0); PCO2 37.9 mmHg (35.0-45.0); PO2 109.3 mmHg (75.0-100.0); pH 7.392 (7.340-7.450)
--- NOTE | 2017-11-16 14:08 | CON ---
[address] [address] CONSULTATION Name: CROW BESS Room: [address] IN ..#: [id number] Admission: 11/07/17 Attend Phys: Theresa Torres MD Discharge: Date of : 45 Report #: [id number] THIS REPORT FOR: //name// CC: Theresa Paez DATE OF SERVICE: 11/16/2017 INFECTIOUS DISEASE CONSULTATION ATTENDING PHYSICIAN: Dr. Billings. 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 HISTORY OF PRESENT ILLNESS: Chart reviewed, patient examined. This is a 72-year-old female with fairly recent diagnosis of metastatic breast carcinoma, is undergoing chemotherapy, who was admitted with dyspnea around the , was diagnosed with multiple PE's, has been on anticoagulation. In addition to that, was found to have dysphagia that has been progressive over the last several days to weeks and was found to have retained fluid on examination, with friability, possible infectious esophagitis, concerned pending biopsies may well have CMV. She is actually intubated, sedated on the vent at this point. She offers no additional history. ALLERGIES: LISTED TO CEPHALEXIN. CURRENT MEDICATIONS: Include Zosyn, acyclovir, midazolam, fentanyl, pantoprazole, enoxaparin, sucralfate, hydrocodone, lisinopril. PAST MEDICAL HISTORY: In addition to the breast cancer, has hypertension. SOCIAL HISTORY: Smokes, greater than 09-btmj-kdjz history. No ethanol, no illicit drug use. FAMILY HISTORY: Noncontributory. REVIEW OF SYSTEMS: Not obtainable. PHYSICAL EXAMINATION: GENERAL: She appears ill. She is in uqjc-ej-lkdjonuv distress. She is supine, intubated. She has contused area over her forehead. She has got a compression dressing on her right upper extremity. VITAL SIGNS: Temperature 100.2, pulse 115, respirations 31, blood pressure is 111/56. SKIN: [place] [address] CONSULTATION Name: SHAHRIARCROW Room: [address] IN ..#: [id number] Admission: 11/07/17 Attend Phys: Theresa Torres MD Discharge: Date of : 45 Report #: [id number] HEENT: Unremarkable. NECK: Apparently, supple. LUNGS: Scattered coarse breath sounds. HEART: Regular, tachycardic. I do not appreciate a murmur. ABDOMEN: Soft. There are no peritoneal signs. GENITOURINARY AND RECTAL: Deferred. LABORATORY DATA: Electrolytes: Sodium 155, potassium 3.7, chloride 119, bicarb is 27, anion gap of 9, BUN and creatinine 34 and 0.8, estimated GFR of 71, ALT of 88, AST of 67, total bilirubin of 2.1. CBC: White count 10.6, H and H 10.7 and 32.5, platelets of 307. Path, biopsy is pending. Chest CT showed large perforation, ulceration along the lateral aspect of the esophagus. Contrast ____ the right aspect of the esophagus between the trachea and tu bifurcation. The esophagus is dilated throughout its course. Left basilar atelectasis. Drain is present. Chest x-ray, complex debris within the mid to lower esophagus without evidence of perforation. Abdominal ultrasound showed fatty liver post-cholecystectomy, esophagitis complicated by perforation. ASSESSMENT AND PLAN: Continue empiric therapy ____ should give us adequate coverage. Biopsy results are pending and it is reasonable to based on the software publisher impression, certainly can exclude some sort of viral underlying esophagitis as well. We will start empirically with ganciclovir pending those results in addition to the antibacterial. We will dose with fluconazole as well. She is critically ill and noted plan is for possible transfer. She will need more definitive treatment. <ELECTRONICALLY SIGNED> By: Terrence Sage MD 11/16/17 1408 0843 1228Jobharathi Sage MD /nt
--- NOTE | 2017-11-16 14:41 | NUR ---
SPOKE WITH [facility] TRANSFER TEAM AT 1837. STATED THEY ARE STILL WAITING BREAKFAST AND ROOM ATTENDANT BACK FROM [place]. SPOKE WITH HER AGAIN AND SHE STATED [place] IS CLOSED TO TRANSFERS. PER JAZMIN, SAID HE WOULD BE AGREEABLE TO [facility] [place] FOR TRANSFER. CALLED [place]/[facility] TRANSFER TEAM [phone] AND GAVE INFORMATION. FAXED FACE SHEET TO HER AT [phone].
[2017-11-16 15:08] LABS: CALCIUM 6.7 mg/dL (8.5-10.1); CREATININE 0.8 mg/dL (0.6-1.3); POTASSIUM 3.6 mmol/L (3.5-5.1)
--- NOTE | 2017-11-16 16:34 | NUR ---
[facility] TRANSFER TEAM/KARY CALLED. HAD SPOKEN WITH THEIR DR. THEY CAN ACCEPT PT.IN TRANSFER. WAITING ON BED ASSIGNMENT. [facility] TRANSFER TEAM WILL CALL ICU HERE WITH BED ASSIGNMENT. CUBA NOTIFIED [facility]E LE. AMBULANCE FORM AND TRANSFER FORM STARTED. CHART COPIED BY [facility]. NOTIFIED SON,JERRY MCCLOUD ON PHONE REGARDING TRANSFER.
--- NOTE | 2017-11-16 17:42 | NUR ---
PT STABLE AT THIS TIME. PT WILL TRANSFER TO [facility] [place] POSSIBLY TOMORROW MORNING. FAMILY UPDATED ON PLAN OF CARE.
[2017-11-17] VITALS (10 sets, daily range): BP systolic 92–108; BP diastolic 51–64
[2017-11-17 04:36] LABS: HEMOGLOBIN 10.1 gm/dL (12.0-15.0); MCH 31.5 pg (26.0-34.0); MCHC 32.7 g/dL (28.0-37.0); MCV 96.4 fL (80.0-100.0); MPV 8.8 fl. (7.2-11.1); RBC 3.22 mil/uL (4.20-5.00); RDW-CV 16.8 % (10.5-14.5); WBC 9.6 thou/uL (4.0-11.0)
[2017-11-17 04:50] LABS: ALBUMIN 2.1 g/dL (3.4-5.0); CALCIUM 6.6 mg/dL (8.5-10.1); CREATININE 0.7 mg/dL (0.6-1.3); MAGNESIUM 2.5 mg/dL (1.8-2.4); POTASSIUM 3.3 mmol/L (3.5-5.1); TOTAL BILIRUBIN 1.5 mg/dL (<0.1-1.0)
[2017-11-17 04:50] LABS: BE -1.9 mmol/L (-2 to +3); HCO3 22.3 mmol/L (22.0-26.0); PCO2 35.9 mmHg (35.0-45.0); PO2 114.2 mmHg (75.0-100.0); pH 7.411 (7.340-7.450)
--- NOTE | 2017-11-17 06:36 | NUR ---
SLOW PROGRESSION TOWARDS GOALS, SEE COMPUTERIZED ASSESSMENT CHARTING FOR FURTHER DETAILS, REMAINS ON VENTILATOR WITHOUT CHANGE IN SETTINGS DURING NOC BY RT, POTASSIUM THIS AM 3.3, FIRST BAG POTASSIUM 20MEQ IVPB STARTED VIA INFUSION PUMP THROUGH CENTRAL LINE PER ELECTROLYTE REPLACEMENT ORDERED PROTOCOL. AFEBRILE, SR/ST WITH PAC'S TRACING HANDBOOK WRITER, PROPOFOL GTT VIA INFUSION PUMP TITRATED FOR SEDATION PER ORDER, LORAZEPAM 1MG IVP X1 GIVEN FOR RESTLESSNESS AND TACHYPENIA WITH EFFECTIVE RESULTS, DRESSINGS X2 CHANGED TO RIGHT LATERAL CHEST PER ORDER. BED REMAINS IN LOW AND LOCKED POSITION.
--- NOTE | 2017-11-17 08:30 | NUR ---
PER [facility] TRANSFER TEAM, THEY DO NOT HAVE BED AVAILABILITY AT THIS TIME. [facility] TRANSFER TEAM STATED [facility] STILL CLOSED TO TRANSFERS. CUBA SPOKE WITH KAIDEN/[facility] TRANSFER AND FAXED FACE SHEET TO HER. SHE WILL PUT DRChanell'S TOGETHER FOR DISCUSSION AND MAKE SURE THEY HAVE BED AVAILABILITY. PT.'S SON,JERRY CALLED FOR UPDATE.
--- NOTE | 2017-11-17 09:17 | NUR ---
4036 ASSUMED CARE OF PATIENT. PLEASE SEE DOCUMENTED ASSESSMENT. PT SEDATED ON PROPOFOL.
--- NOTE | 2017-11-17 09:18 | NUR ---
[address] FERNANDEZ ON UNIT AND ORDERS NOTED. RATE UP TO 150 WHEN IRREGULAR. THEN BACK TO SINUS RHYTHM
--- NOTE | 2017-11-17 10:19 | S ---
[facility] [address] [place] [address] SURGICAL PATH RPT PROCEDURE Name: RANDI FRANCOIS Room: [address] IN [facility].#: [id number] Admission: 11/07/17 Date of : 45 Discharge: Report #: [id number] Path Case #: [id number] PATHOLOGY REPORT COLLECTION DATE: 11/14/2017 RECEIVED DATE: 11/15/2017 SUBMITTING PHYS: Dr. Cole Mcneal OTHER PHYS: Dr. Theresa Paez, 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 (see comment) COMMENT: A properly controlled GMS stain highlights fungal organisms compatible with Lexie species, noted as aggregates in the inflammatory debris, without organisms seen within the epithelium itself and this could represent colonization in the setting of pill esophagitis. (GIULIA:; 11/16/2017) PATHOLOGIST: Otto Judd M.D. REPORT ELECTRONICALLY SIGNED BY: Otto Judd M.D. DATE/TIME: 11/17/2017 10:18 * * * * * * * * * * * * GROSS PATHOLOGY: Received in formalin labeled "Randi Francois, distal esophageal biopsy," is a segment of wong soft tissue measuring 0.4 x 0.2 x 0.1 cm in maximum dimension. The specimen is submitted entirely in cassette A1. (SDY; 11/15/2017) CLINICAL HISTORY: None provided INITIAL CPT CODE(S): [place] [address] SURGICAL PATH RPT PROCEDURE Name: RANDI FRANCOIS Room: [address] ADM IN .R.#: [id number] Admission: 11/07/17 Date of : 45 Discharge: Report #: [id number] Path Case #: [id number]; [id number], [id number] Professional services performed by [facility] at [facility], [address] [place] [address]. Technical services performed by [facility] at [address] [place] [address], [facility] [address] [place] [address]. [facility] [address] [place] [address] PHONE: [phone] DIRECTOR: Irwin Parks M.D. * * * END OF REPORT * * *
--- NOTE | 2017-11-17 10:52 | NUR ---
[facility] TRANSFER TEAM REQUESTING H&P,2 DAYS OF MOST RECENT PROGRESS NOTES, 2 DAYS MOST RECENT LABS, ALL CT REPORTS, EGD REPORTS BE FAXED FOR REVIEW. SHE SAID IS ORDERING A CT FOR TODAY AND ABOVE INFORMATION CAN WAIT TO BE FAXED WHEN REPORT IS BACK. CM WILL FAX TO HER.
--- NOTE | 2017-11-17 11:33 | NUR ---
BACK FROM CT WITH CONTRAST FOR CHEST.SPOUSE HERE
--- NOTE | 2017-11-17 12:35 | EKG ---
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1945 Requested By: Siva Pereyra Order Number: [id number] Wilfredo MD: Clayton Herrera Measurements Intervals [place] Rate: 101 P: 15 [place]: 96 QRS: 79 QRSD: 97 T: QT: 419 QTc: 544 Interpretive Statements Sinus tachycardia with short pr interval Abnrm T, consider ischemia, anterolateral lds Prolonged QT interval Compared to ECG 11/14/2017 08:50:28 No significant changes Electronically Signed On 11-17-2017 12:35:33 ROUTE SALES REPRESENTATIVE by Clayton Herrera [email or web address] <ELECTRONICALLY SIGNED> By: Clayton Herrera MD, [facility] 11/17/17 1235 0851 0851 Clayton Herrera MD, [facility] /EPI
--- NOTE | 2017-11-17 13:29 | NUR ---
[facility]OG[facility] HAS ACCEPTING PHYSICIAN. SON NOTIFIED
--- NOTE | 2017-11-17 14:12 | NUR ---
DESTINEE,CALLED FOR NETTE. [facility] CALLED WITH BED ASSIGNMENT-[id number]. SHE FAXED AMBULANCE FORM TO [facility]. CM CALLED [facility] [phone] AND SET UP AMBULANCE FOR AFTER 1430. THEY ARE AWARE PT.ON VENT,MONITOR AND DRIPS. NOTIFIED JERRY (SON) OF RM # AND TIME OF TRANSFER. HE WILL CALL PT.'S ,DEONDRE AND LET HIM KNOW. AME PERDUE HAS GIVEN REPORT.
--- NOTE | 2017-11-17 14:59 | NUR ---
1450 PATIENT TRANSFERRED VIA [facility] TO . SPOUSE AND SON NOTIFIED OF TRANSFER. TRANSFER CENTER NOTIFIED OF DEPARTURE
--- NOTE | 2017-11-20 10:00 | CON ---
[address] [address] CONSULTATION Name: CROW BESS Room: [address] IN M.R.#: [id number] Admission: 11/07/17 Attend Phys: Theresa Torres MD Discharge: 11/17/17 Date of : 45 Report #: [id number] THIS REPORT FOR: //name// CC: Theresa Paez REASON FOR CONSULTATION: Respiratory failure. HISTORY OF PRESENT ILLNESS: This is a 72-year-old female patient who was admitted to the hospital on 11/07/2017 for increasing shortness of breath, poor appetite and nausea. She has a background history of breast cancer, metastatic and she is on chemotherapy, the last course was mid October. She had initial evaluation including CT of the chest that showed PE. She was started on anticoagulation. Also, during this hospitalization, she was evaluated by GI because of dysphagia that had been progressively getting worse. She underwent EGD to distal esophagus on 11/14/2017. We were unable to advance the scope to the stomach with significant amount of food retained in the esophagus with friability and ____ with ulceration of distal esophagus with suspected to be cancer protruding into the esophagus that was biopsied. 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 She was consulted and ID was consulted to treat CMV esophagitis because of her immunocompromised state and she was intubated during the proceeding and brought into the ICU on the ventilator. A CT scan afterwards that was done on 11/15/2017, demonstrated a large perforation and ulceration along the right aspect of the esophagus. She was started on ganciclovir, Zosyn and fluconazole. At the time of my evaluation, she was intubated, sedation was propofol on IV fluid at 50 mL per hour. She looks comfortable on the assist controlled ventilation. Also she was found to have abnormal LFTs during the hospitalization. PAST MEDICAL HISTORY: Breast cancer, on chemotherapy; hypertension; dysphagia as above. HOME MEDICATIONS: She is on lisinopril and some form of pain medication. SOCIAL HISTORY: She is a smoker for 52 years, smokes cigarettes. ALLERGIES: FISH-CONTAINING PRODUCTS, CEPHALEXIN and TAPE. REVIEW OF SYSTEMS: At this point, she is intubated and sedated, did not participate in history. CURRENT MEDICATIONS: She is on ganciclovir, Zosyn, IV fluid, fluconazole, DuoNeb, fentanyl p.r.n., propofol, pantoprazole IV, hydrocodone, metoclopramide, lorazepam [place] [address] CONSULTATION Name: CROW BESS Room: [address] IN M.R.#: [id number] Admission: 11/07/17 Attend Phys: Theresa Torres MD Discharge: 11/17/17 Date of : 45 Report #: [id number] PHYSICAL EXAMINATION: GENERAL: Intubated, sedated, on the vent, looking comfortable. HEENT: Head normocephalic, atraumatic. Pupils reactive to light. Sclerae no jaundice. External ear looks healthy and normal. Moist mucous membrane with ET tube in place. NECK: Supple. CHEST: Air movement heard bilaterally, did not hear wheezes, some basilar crackles mostly on the right side. HEART: S1, S2. ABDOMEN: Obese, soft, lax, and nontender. No masses felt. EXTREMITIES: Lower extremities, trace edema, no calf tenderness. MUSCULOSKELETAL: No deformities noted. She had a bandage on the right upper extremity, no contracture. PSYCHIATRIC: Mood and affect could not be evaluated. NEUROLOGIC: She is sedated, could not be evaluated. LYMPHATICS: Did not feel lymph nodes. LABORATORY DATA: She had multiple imaging during this hospitalization. Initially, her chest x-ray showed costophrenic angle pleural thickening. A CT of the chest demonstrated pulmonary embolus, bilateral upper and lower pulmonary emboli with right lower lobe atelectasis. Repeat CT scan on 11/15/2017 demonstrated perforation, ulceration along the right aspect of the esophagus. IMPRESSION: 1. Acute respiratory failure. 2. Acute pulmonary embolus. 3. Right basilic venous thrombus in the right upper extremity. 4. Esophageal perforation. 5. Abnormal liver function test. 6. Breast cancer. 7. Dysphagia. 8. Esophagitis. 9. Possible esophageal malignancy. 10. Esophageal dysmotility. PLAN: This is a complex case with pulmonary embolus that requires anticoagulation, perforated esophagus, metastatic breast cancer and possible esophageal cancer with dysphagia and possible esophageal infection in addition to perforation. She is on antiviral and Zosyn at this point ____ and she is currently being considered to transfer to another facility where she can be evaluated for thoracic surgery. Biopsies from the esophageal abnormal area is pending. I would continue the current the vent setting, scheduled nebulization treatment. I did not hear wheezes one exam, so I will hold off of starting the steroids. I would just keep her on scheduled nebulization treatment. No active weaning [address] [address] CONSULTATION Name: CROW BESS Room: [address] IN ..#: [id number] Admission: 11/07/17 Attend Phys: Theresa Torres MD Discharge: 11/17/17 Date of : 45 Report #: [id number] trial until the acute issue is more stable. We will do Doppler ultrasound of the lower extremities in case she needs to go to surgery and she needs to come off anticoagulation for prolonged period of time. Thank you for the consult. We will follow along with you. Her labs were reviewed. ABGs also were reviewed. <ELECTRONICALLY SIGNED> By: Rodríguez Ubrina MD 11/20/17 1000 [id number] 1853Dmichel Urbina MD /nt
--- NOTE | 2017-11-20 10:53 | S ---
[place] [address] SURGICAL PATH RPT PROCEDURE Name: RANDI FRANCOIS Ashley Room: [address] IN ..#: [id number] Admission: 11/07/17 Date of : 45 Discharge: 11/17/17 Report #: [id number] Path Case #: [id number] PATHOLOGY REPORT COLLECTION DATE: 11/15/2017 RECEIVED DATE: 11/16/2017 SUBMITTING PHYS: Dr. Aaron Meyer OTHER PHYS: Dr. Theresa Paez, [facility] SPECIMEN(S) RECEIVED: A.Esophageal ulceration biopsy at 30 cm B.Esophageal ulceration biopsy at 25 cm * * * * * * * * * * * * FINAL DIAGNOSIS: A. Esophageal biopsy at 30 cm: - Severe active esophagitis with ulceration and abundant birefringent crystalline foreign material in association with inflammatory debris compatible with "pill esophagitis" and with fungal organisms compatible with Lexie species, negative for diagnostic viral inclusions, dysplasia, and granulomas. (see comment) B. Esophageal biopsy at 25 cm: - Severe active esophagitis with ulceration and with abundant birefringent crystalline foreign material in association with inflammatory debris compatible with "pill esophagitis," negative for fungal organisms, diagnostic viral inclusions, dysplasia, and granulomas. (see comment) COMMENT: Properly controlled CMV and HSV2 stains performed on both A and B are negative. Properly controlled GMS stains performed on specimens A and B show few yeast/fungal elements in the inflammatory/necrotic debris in specimen A, without fungal elements seen within the epithelium itself and it may represent contamination. No fungal elements are seen in specimen B. (GIUILA:mgr/tricia; 11/20/2017) PATHOLOGIST: Otto Judd M.D. REPORT ELECTRONICALLY SIGNED BY: Otto Judd M.D. DATE/TIME: 11/20/2017 10:52 * * * * * * * * * * * * GROSS PATHOLOGY: A. Received in formalin labeled "Randi Francois, esophageal biopsy at 30 cm," are 4 segments of wong soft tissue measuring 1.0 [place] [address] SURGICAL PATH RPT PROCEDURE Name: RANDI FRANCOIS Room: [address] IN [facility]#: [id number] Admission: 11/07/17 Date of : 45 Discharge: 11/17/17 Report #: [id number] Path Case #: [id number] 0.7 x 0.2 cm in aggregate dimensions and ranging from 0.3 to 0.4 cm in maximum dimension. The specimen is submitted entirely in cassette A1. B. Received in formalin labeled "Randi Francois, esophageal biopsy at 25 cm," are 3 segments of wong soft tissue measuring 1.0 x 0.5 x 0.1 cm in aggregate dimensions and ranging from 0.2 to 0.5 cm in maximum dimension. The specimen is submitted entirely in cassette B1. (TSD; 11/16/2017) CLINICAL HISTORY: (A, B). Evaluate for CMV and HSV INITIAL CPT CODE(S): A; 94928, 33938, 41891, 10528 B; 56223, 55408, 68279, 01889 Professional services performed by [facility] at [address] [address] Technical services performed by [facility] at [address] [place] [address], [address], [place] [address]. [facility] [address] [place] [address] PHONE: [phone] DIRECTOR: Irwin Parks M.D. * * * END OF REPORT * * *
--- NOTE | 2017-12-06 16:12 | PROC ---
[facility] [address] [place] [address] PROCEDURE REPORT Name: CROW BESS Room: [address] IN M.R.#: [id number] Admission: 11/07/17 Attend Phys: Theresa Torres MD Discharge: 11/17/17 Date of : 45 Report #: [id number] THIS REPORT FOR: //name// CC: RADHA Roberson MD DATE OF SERVICE: 11/14/2017 PROCEDURE PERFORMED: EGD to distal esophagus. MEDICATION GIVEN DURING THIS PROCEDURE: Include propofol administered by inside [employer] sales. INDICATION FOR PROCEDURE: Dysphagia and odynophagia. PHYSICAL EXAMINATION: VITAL SIGNS: Reveals normal vitals. LUNGS: Clear. CARDIOVASCULAR: Regular. ABDOMEN: Soft, nontender, nondistended. Bowel sounds are positive. DESCRIPTION OF PROCEDURE: EGD scope was used to enter the mouth and was advanced into the esophagus. There was significant amount of retained food in the esophagus extending from proximal to distal esophagus. After multiple washes, I was able to visualize the proximal half of the esophagus. From this point on, there was lot of friability and retained food. I biopsied this segment. Note that, I was not able to advance the scope to the stomach. IMPRESSION: 1. Incomplete EGD with inability to advance the scope into the stomach. 2. Significant amount of food retained in the esophagus. 3. Friability and irregularity with ulceration in the distal esophagus. This may be the primary esophageal malignancy versus metastatic lung CA, protruding into the esophagus. This was biopsied. RECOMMENDATION: We will make the patient n.p.o. We will try to visualize again tomorrow and give the patient couple higher dose of Reglan [place] [address] PROCEDURE REPORT Name: CROW BESS Room: [address] IN [facility].#: [id number] Admission: 11/07/17 Attend Phys: Theresa Torres MD Discharge: 11/17/17 Date of : 45 Report #: [id number] clear her esophagus. We will make further recommendation once her upper endoscopy is complete. Meanwhile, we will follow up biopsy results. <ELECTRONICALLY SIGNED> By: Cole Mcneal MD 12/06/17 1612 1707 1840Cole Mcneal MD /nt
== END 2017-11-17 14:50 | disposition short-term general hospital (02) | DRG 208 ==
LOC: M.ERS 14:06 → M.TBA-ER 17:11 → M.2W 17:11 → M.ICU 11-15 19:09
PROVIDERS: Family Medicine; Internal Medicine; Nurse Practitioner Adult Health; Nurse Practitioner Family; ADMIT Internal Medicine
PROC: 02HV33Z Insertion of Infusion Device into Superior Vena Cava, Percutaneous Approach (ICD-10-PCS; 2017-11-07)
PROC: 0DB58ZX Excision of Esophagus, Via Natural or Artificial Opening Endoscopic, Diagnostic (ICD-10-PCS; principal; 2017-11-14)
PROC: 5A1945Z Respiratory Ventilation, 24-96 Consecutive Hours (ICD-10-PCS; 2017-11-15)
PROC: 0BH17EZ Insertion of Endotracheal Airway into Trachea, Via Natural or Artificial Opening (ICD-10-PCS; 2017-11-15)
DX: J15.6 Pneumonia due to other Gram-negative bacteria (principal); I26.99 Other pulmonary embolism without acute cor pulmonale; R65.11 Systemic inflammatory response syndrome (SIRS) of non-infectious origin with acute organ dysfunction; J96.01 Acute respiratory failure with hypoxia; K22.10 Ulcer of esophagus without bleeding; I10 Essential (primary) hypertension; K76.0 Fatty (change of) liver, not elsewhere classified; F17.210 Nicotine dependence, cigarettes, uncomplicated; T18.128A Food in esophagus causing other injury, initial encounter; R13.10 Dysphagia, unspecified; C50.919 Malignant neoplasm of unspecified site of unspecified female breast; S00.83XA Contusion of other part of head, initial encounter; W18.39XA Other fall on same level, initial encounter; Y93.89 Activity, other specified; Y92.89 Other specified places as the place of occurrence of the external cause; Z88.1 Allergy status to other antibiotic agents; Z99.81 Dependence on supplemental oxygen; Z91.013 Allergy to seafood; Z91.09 Other allergy status, other than to drugs and biological substances; Y99.8 Other external cause status